=== PATIENT | female | born 1980 | race Hispanic/Latino ===

== ENCOUNTER 2017-01-29 21:04 | Emergency (ER) | payer SELFPAY | END 2017-01-29 22:36 | disposition home or self-care (01) | LOC: ERS 21:04 | DX: J06.9 Acute upper respiratory infection, unspecified (principal); I10 Essential (primary) hypertension; J45.909 Unspecified asthma, uncomplicated | CPT/HCPCS: 93005 ==

== ENCOUNTER 2017-02-19 23:02 | Emergency (ER) | payer SELFPAY ==
[2017-02-20 00:07] LABS: Hematocrit 38.1 % (36.0-47.0); Mean Platelet Volume 8.2 fL (7.4-10.4); Red Blood Cell (RBC) Count 4.46 mill/uL (4.20-5.40); White Blood Cell (WBC) Count 5.2 thou/uL (4.8-10.8)
[2017-02-20 00:27] LABS: Neutrophil 38 % (42-75); Reactive Lymphocytes 7 % (0-10)
[2017-02-20 00:28] LABS: ALT (SGPT) 12 U/L (8-55); AST (SGOT) 11 U/L (5-34); Alkaline Phosphatase 89 U/L (40-150); Anion Gap 13 mmol/L (10-20); BUN (Urea Nitrogen) 15 mg/dL (7.0-18.7); Bilirubin, Total 0.6 mg/dL (0.2-1.2); Calc. Creatinine Clearance 0 mL/min (70-130); Calcium 9.4 mg/dL (7.8-10.44); Carbon Dioxide 24 mmol/L (22-29); Chloride 106 mmol/L (98-107); Estimated GFR-MDRD 87; Globulin 3.3 g/dL (2.4-3.5); Protein, Total 7.5 g/dL (6.0-8.3)
[2017-02-20 00:34] LABS: Troponin I Less than 0.010 ng/mL (< 0.028)
[2017-02-20] MEDS ORDERED: Nitroglycerin 0.4 MG TAB (25 Tab Bottle) ONE (00:36)
[2017-02-20] MEDS ORDERED: Nitroglycerin 2% Ointment 1 INCH/1 GM Packet ONE (00:36)
[2017-02-20 00:51] LABS: CK (CPK) 84 U/L (29-168); Lipase 20 U/L (8-78)
--- NOTE | 2017-02-20 07:35 | RAD ---
PORTABLE CHEST 1 VIEW: DATE: 02/20/17. TIME: 12:00 a.m. HISTORY: Chest pain and facial numbness. FINDINGS: Comparison is made with the exam of 12/20/16. The heart size is normal. The lungs are expanded without focal areas of consolidation, pneumothorax , or pleural effusions. IMPRESSION: No radiographic evidence of acute cardiopulmonary process. POS: H
== END 2017-02-20 01:40 | disposition home or self-care (01) ==
LOC: ERS 23:02
DX: R07.9 Chest pain, unspecified (principal); R20.2 Paresthesia of skin; I10 Essential (primary) hypertension; J45.909 Unspecified asthma, uncomplicated
CPT/HCPCS: 71010; 80053; 81025; 82550; 82553; 83690; 84443; 84484; 85025; 93005

== ENCOUNTER 2017-05-17 13:53 | Emergency (ER) | payer SELFPAY ==
[2017-05-17] MEDS ORDERED: diphenhydrAMINE 50 MG/ML VIAL ONE (14:30)
[2017-05-17] MEDS ORDERED: Metoclopramide HCl 10 MG/2 ML VIAL ONE (14:31)
[2017-05-17] MEDS ORDERED: Ketorolac Tromethamine 30 MG/ML VIAL ONE (14:31)
[2017-05-17 15:00] LABS: Bilirubin Negative (Negative); Blood, Urine Negative (Negative); Clarity CLEAR (Clear); Glucose, Urine (Dipstick) Negative (Negative); Leukocyte Negative (Negative); Nitrite Negative (Negative); Protein, Urine (Dipstick) Negative (Neg-Trace); Specific Gravity, Urine 1.009 (1.002-1.036); Urobilinogen 0.2 mg/dL (0.2-1.0); pH, Urine 7.5 (5.0-9.0)
[2017-05-17 15:02] LABS: Pregnancy Test - Urine (BHCG) Negative (Negative); Pregu Control Background? CLEAR/WHITE (CLR/WHITE); Pregu Control Bar Appear? YES (CONTROL BAR); Specific Gravity 1.009 (1.002-1.036)
--- NOTE | 2017-05-17 15:04 | CT ---
HEAD CT WITHOUT CONTRAST: DATE: 05/17/17. COMPARISON: 12/20/16. HISTORY: Left-sided headache, blurred vision, sensitive to light and sound. TECHNIQUE: Serial axial CT imaging at 5 mm intervals from the vertex through the skull base without contrast. FINDINGS: The imaged paranasal sinuses/mastoid air cells are well aerated. There is no displaced calvarial fra cture. There is no intracranial hemorrhage, midline shift, mass effect, or ventricular enlargement. IMPRESSION: No acute findings. POS: [id number]
== END 2017-05-17 16:16 | disposition home or self-care (01) ==
LOC: ERS 13:53
DX: G43.909 Migraine, unspecified, not intractable, without status migrainosus (principal); I10 Essential (primary) hypertension; J45.909 Unspecified asthma, uncomplicated
CPT/HCPCS: 70450; 81003; 81025; 96361; 96374; 96375; J1200; J1885; J2765

== ENCOUNTER 2024-12-04 12:41 | Outpatient (CLI) | payer OTHER ==
[2024-12-04 14:56] LABS: #Basophils 0.05 10x3/uL (0.0-0.2); #Eosinophils 0.13 10x3/uL (0.0-0.7); #Monocytes 0.30 10x3/uL (0.11-0.59); #Neutrophils 2.45 10x3/uL (1.40-6.50); %Basophils 1.0 % (0.0-1.0); %Eosinophils 2.6 % (0.0-10.0); %Lymphocytes 41.4 % (21.0-51.0); %Monocytes 5.9 % (0.0-10.0); %Neutrophils 48.3 % (42.0-75.0); Hematocrit 37.0 % (36.0-47.0); Hemoglobin 11.9 g/dL (12.0-16.0); Mean Corpuscular Hemoglobin 27.5 pg (27.0-31.0); Mean Corpuscular Volume 85.5 fL (78.0-98.0); Platelet Count 257 10x3/uL (130-400); Red Blood Cell (RBC) Count 4.33 mill/uL (4.20-5.40); White Blood Cell (WBC) Count 5.07 10x3/uL (4.8-10.8)
[2024-12-04 15:11] LABS: INR-International Normal Ratio 1.1; PTT 31.7 sec (22.9-36.1); Prothrombin Time 13.9 sec (12.0-14.7)
[2024-12-04 15:12] LABS: Anion Gap 12 mmol/L (10-20); BHCG - Serum Negative (NEGATIVE); BUN (Urea Nitrogen) 12 mg/dL (7.0-18.7); Calc. Creatinine Clearance 0 mL/min (70-130); Calcium 9.1 mg/dL (7.8-10.44); Carbon Dioxide 22 mmol/L (22-29); Chloride 108 mmol/L (98-107); Glucose 81 mg/dL (70-105); Potassium 4.1 mmol/L (3.5-5.1); Pregs Control Background? CLEAR/WHITE (CLR/WHITE); Pregs Control Bar Appear? YES (CONTROL BAR); Sodium 138 mmol/L (136-145)
[2024-12-04 15:21] LABS: Glucose, Urine (Dipstick) Normal (Negative); Leukocyte 75 Leu/uL (Negative); Protein, Urine (Dipstick) Negative (Neg-Trace); RBC/HPF 0-3 HPF (0-3); Specific Gravity, Urine 1.014 (1.002-1.036)
[2024-12-04 15:23] LABS: Bacteria/HPF 1+ HPF (None Seen)
== END 2024-12-04 12:42 | disposition home or self-care (01) ==
LOC: LABBT 12:41
PROVIDERS: ATTEND Urology
DX: Z01.818 Encounter for other preprocedural examination (principal); N39.0 Urinary tract infection, site not specified; N28.89 Other specified disorders of kidney and ureter
CPT/HCPCS: 71046; 80048; 81001; 84703; 85025; 85610; 85730; 86850; 86900; 86901; 87077; 87086

== ENCOUNTER 2024-12-07 07:29 | Emergency (ER) | payer OTHER ==
[2024-12-07] MEDS ORDERED: Ketorolac Tromethamine 30 MG (1 mL) VIAL ONE (08:29)
[2024-12-07] MEDS ORDERED: Metoclopramide HCl 10 MG (2 mL) VIAL ONE (08:29)
[2024-12-07 08:42] LABS: #Basophils 0.05 10x3/uL (0.0-0.2); #Eosinophils 0.09 10x3/uL (0.0-0.7); #Monocytes 0.22 10x3/uL (0.11-0.59); #Neutrophils 2.41 10x3/uL (1.40-6.50); %Basophils 1.1 % (0.0-1.0); %Eosinophils 1.9 % (0.0-10.0); %Lymphocytes 38.7 % (21.0-51.0); %Monocytes 4.8 % (0.0-10.0); %Neutrophils 52.2 % (42.0-75.0); Hematocrit 40.9 % (36.0-47.0); Hemoglobin 13.6 g/dL (12.0-16.0); Mean Corpuscular Hemoglobin 27.8 pg (27.0-31.0); Mean Corpuscular Volume 83.5 fL (78.0-98.0); Platelet Count 272 10x3/uL (130-400); Red Blood Cell (RBC) Count 4.90 mill/uL (4.20-5.40); White Blood Cell (WBC) Count 4.62 10x3/uL (4.8-10.8)
[2024-12-07 09:08] LABS: ALT (SGPT) 11 U/L (Less than 34); AST (SGOT) 20 U/L (11-34); Albumin 4.5 g/dL (3.1-4.5); Alkaline Phosphatase 84 U/L (40-110); Anion Gap 15 mmol/L (10-20); BUN (Urea Nitrogen) 9 mg/dL (7.0-18.7); Bilirubin, Total 1.0 mg/dL (0.3-1.2); Calc. Creatinine Clearance 0 mL/min (70-130); Calcium 9.4 mg/dL (7.8-10.44); Carbon Dioxide 24 mmol/L (22-29); Chloride 104 mmol/L (98-107); Globulin 3.3 g/dL (2.4-3.5); Glucose 97 mg/dL (70-105); Potassium 4.2 mmol/L (3.5-5.1); Sodium 139 mmol/L (136-145)
[2024-12-07 09:11] LABS: Troponin I Less than 0.010 ng/mL (< 0.028)
[2024-12-07 10:28] LABS: Actual Bicarbonate (HCO3v) 23.0 mEq/L (22-28); Base Excess -2.7 mEq/L (-2.0 to +3.0); Calcium, Ionized (venous) 1.15 mmol/L (1.16-1.32); Chloride (VBG) 106 mmol/L (98-106); Hematocrit-VBG 39 % (36.0-47.0); Hemoglobin (Hb) 13.2 g/dL (11.7-15.5); Potassium (VBG) 4.44 mmol/L (3.70-5.30); Sodium 140 mmol/L (133-146)
== END 2024-12-07 11:36 | disposition home or self-care (01) ==
LOC: ERS 07:29
DX: Z77.098 Contact with and (suspected) exposure to other hazardous, chiefly nonmedicinal, chemicals (principal); I10 Essential (primary) hypertension
CPT/HCPCS: 71045; 80053; 82374; 82805; 84484; 85025; 93005; 96374; 96375; J1885; J2765

== ENCOUNTER → 2024-12-17 | Day surgery (SDC) | payer OTHER ==
[2024-12-04 12:57] VITALS: BMI 34.7
[~2024-12-17] MED LIST: CEFAZOLIN 1 GM VIAL ONE; Lidocaine 1% PF 5 ML VIAL ONE; PROPOFOL 0 ML ONE; Rocuronium Bromide 10 MG/ML (10ML VIAL) ONE; fentaNYL PF 100 MCG/2 ML SYRINGE ONE
== END ==
LOC: SDC 06:10
PROVIDERS: ATTEND Urology
DX: N28.89 Other specified disorders of kidney and ureter (principal); Z53.8 Procedure and treatment not carried out for other reasons
CPT/HCPCS: 86850; 86900; 86901; J0690; J2704

== ENCOUNTER 2025-02-11 12:00 | Inpatient (IN) | payer OTHER ==
[2025-02-25] MEDS ORDERED: Rocuronium Bromide 10 MG/ML (10ML VIAL) ONE (06:44)
[2025-02-25] MEDS ORDERED: PHENYLEPHRINE-NS 100 MCG/ML 10 ML SYRINGE ONE (06:44)
[2025-02-25] MEDS ORDERED: HYDROmorphone 2 MG/ML VIAL ONE (06:45)
[2025-02-25] MEDS ORDERED: PROPOFOL 20 ML ONE (06:46)
[2025-02-25] MEDS ORDERED: CEFAZOLIN 2 GM VIAL ONE (07:40)
[2025-02-25] MEDS ORDERED: Glycopyrrolate 0.2 MG/ML 5 ML SYRINGE ONE (09:04)
[2025-02-25] MEDS ORDERED: Bupivacaine 0.25% HCL 30 ML VIAL ONE (09:10)
[2025-02-25] MEDS ORDERED: Ropivacaine 0.2% HCl/PF 40 ML ONE (11:47)
[2025-02-25] MEDS ORDERED: SUGAMMADEX SODIUM 200 MG/2 ML VIAL ONE (11:59)
[2025-02-25] MEDS ORDERED: Ondansetron PF 4 MG/2 ML Vial ONE (11:59)
[2025-02-25] MEDS ORDERED: CEFAZOLIN 1 GM VIAL ONE (12:41)
[2025-02-25] MEDS ORDERED: fentaNYL PF 100 MCG/2 ML SYRINGE ONE ×2 (13:25→13:53)
[2025-02-25] MEDS ORDERED: Ondansetron PF 4 MG/2 ML Vial IVP PRN (13:57)
[2025-02-25] MEDS ORDERED: Mag-Al 1200 mg/1200 mg/30 ML UDCUP PO PRN (13:57)
[2025-02-25] MEDS ORDERED: diphenhydrAMINE 25 MG CAP PO PRN (13:57)
[2025-02-25] MEDS ORDERED: hydrALAZINE 20 MG/ML VIAL SLOW IVP PRN (13:57)
[2025-02-25] MEDS ORDERED: Oxybutynin 5 MG TAB PO PRN (13:57)
[2025-02-25] MEDS ORDERED: Bisacodyl 10 MG SUPP PR PRN (13:57)
[2025-02-25 16:58] LABS: Hematocrit 35.9 % (36.0-47.0); Hemoglobin 11.2 g/dL (12.0-16.0); Mean Corpuscular Hemoglobin 26.8 pg (27.0-31.0); Mean Corpuscular Volume 85.9 fL (78.0-98.0); Platelet Count 240 10x3/uL (130-400); Red Blood Cell (RBC) Count 4.18 mill/uL (4.20-5.40); White Blood Cell (WBC) Count 13.75 10x3/uL (4.8-10.8)
[2025-02-25] MEDS: Acetaminophen 500 MG TAB PO SCH (17:11)
[2025-02-25 17:15] LABS: Anion Gap 14 mmol/L (10-20); BUN (Urea Nitrogen) 9 mg/dL (7.0-18.7); Calc. Creatinine Clearance 114 mL/min (70-130); Calcium 8.5 mg/dL (7.8-10.44); Carbon Dioxide 20 mmol/L (22-29); Chloride 111 mmol/L (98-107); Glucose 142 mg/dL (70-105); Potassium 4.1 mmol/L (3.5-5.1); Sodium 141 mmol/L (136-145)
[2025-02-26 06:10] LABS: #Basophils Less than 0.03 10x3/uL (0.0-0.2); #Eosinophils Less than 0.03 10x3/uL (0.0-0.7); #Monocytes 0.54 10x3/uL (0.11-0.59); #Neutrophils 7.75 10x3/uL (1.40-6.50); %Basophils 0.2 % (0.0-1.0); %Eosinophils 0.0 % (0.0-10.0); %Lymphocytes 12.7 % (21.0-51.0); %Monocytes 5.6 % (0.0-10.0); %Neutrophils 80.9 % (42.0-75.0); Hematocrit 28.4 % (36.0-47.0); Hemoglobin 9.0 g/dL (12.0-16.0); Mean Corpuscular Hemoglobin 27.0 pg (27.0-31.0); Mean Corpuscular Volume 85.3 fL (78.0-98.0); Platelet Count 246 10x3/uL (130-400); Red Blood Cell (RBC) Count 3.33 mill/uL (4.20-5.40); White Blood Cell (WBC) Count 9.59 10x3/uL (4.8-10.8)
[2025-02-26 06:37] LABS: Anion Gap 10 mmol/L (10-20); BUN (Urea Nitrogen) 12 mg/dL (7.0-18.7); Calc. Creatinine Clearance 108 mL/min (70-130); Calcium 8.3 mg/dL (7.8-10.44); Carbon Dioxide 23 mmol/L (22-29); Chloride 109 mmol/L (98-107); Glucose 114 mg/dL (70-105); Potassium 4.1 mmol/L (3.5-5.1); Sodium 138 mmol/L (136-145)
[2025-02-26] MEDS: oxyCODONE 5 MG TAB PO PRN ×2 (09:05→15:37)
[2025-02-27 05:20] LABS: #Basophils 0.04 10x3/uL (0.0-0.2); #Eosinophils 0.04 10x3/uL (0.0-0.7); #Monocytes 0.46 10x3/uL (0.11-0.59); #Neutrophils 3.99 10x3/uL (1.40-6.50); %Basophils 0.6 % (0.0-1.0); %Eosinophils 0.6 % (0.0-10.0); %Lymphocytes 35.0 % (21.0-51.0); %Monocytes 6.5 % (0.0-10.0); %Neutrophils 56.7 % (42.0-75.0); Hematocrit 27.2 % (36.0-47.0); Hemoglobin 8.4 g/dL (12.0-16.0); Mean Corpuscular Hemoglobin 26.7 pg (27.0-31.0); Mean Corpuscular Volume 86.3 fL (78.0-98.0); Platelet Count 193 10x3/uL (130-400); Red Blood Cell (RBC) Count 3.15 mill/uL (4.20-5.40); White Blood Cell (WBC) Count 7.03 10x3/uL (4.8-10.8)
[2025-02-27 05:40] LABS: Anion Gap 9 mmol/L (10-20); BUN (Urea Nitrogen) 13 mg/dL (7.0-18.7); Calc. Creatinine Clearance 110 mL/min (70-130); Calcium 8.2 mg/dL (7.8-10.44); Carbon Dioxide 24 mmol/L (22-29); Chloride 108 mmol/L (98-107); Glucose 96 mg/dL (70-105); Magnesium 2.0 mg/dL (1.6-2.6); Potassium 4.0 mmol/L (3.5-5.1); Sodium 137 mmol/L (136-145)
[2025-02-27 12:49] LABS: Hematocrit 29.9 % (36.0-47.0); Hemoglobin 9.2 g/dL (12.0-16.0)
[2025-02-27 14:45] VITALS: BMI 36.3
[2025-02-28 05:43] LABS: #Basophils 0.06 10x3/uL (0.0-0.2); #Eosinophils 0.11 10x3/uL (0.0-0.7); #Monocytes 0.40 10x3/uL (0.11-0.59); #Neutrophils 2.93 10x3/uL (1.40-6.50); %Basophils 1.1 % (0.0-1.0); %Eosinophils 2.0 % (0.0-10.0); %Lymphocytes 35.3 % (21.0-51.0); %Monocytes 7.3 % (0.0-10.0); %Neutrophils 53.6 % (42.0-75.0); Hematocrit 28.4 % (36.0-47.0); Hemoglobin 8.9 g/dL (12.0-16.0); Mean Corpuscular Hemoglobin 26.7 pg (27.0-31.0); Mean Corpuscular Volume 85.3 fL (78.0-98.0); Platelet Count 188 10x3/uL (130-400); Red Blood Cell (RBC) Count 3.33 mill/uL (4.20-5.40); White Blood Cell (WBC) Count 5.47 10x3/uL (4.8-10.8)
[2025-02-28 06:09] LABS: Anion Gap 9 mmol/L (10-20); BUN (Urea Nitrogen) 11 mg/dL (7.0-18.7); Calc. Creatinine Clearance 126 mL/min (70-130); Calcium 8.7 mg/dL (7.8-10.44); Carbon Dioxide 29 mmol/L (22-29); Chloride 105 mmol/L (98-107); Glucose 85 mg/dL (70-105); Magnesium 1.8 mg/dL (1.6-2.6); Potassium 3.9 mmol/L (3.5-5.1); Sodium 139 mmol/L (136-145)
[2025-02-28] MEDS: FLU (Fluarix Triv) 25-26 (6MOS UP)/PF 45 MCG/0.5 ML Syringe IM ONE (11:00)
[2025-02-28] MEDS: Magnesium 2 GM/50 ML(in water) 2 GM in Premix 1 BAG IVPB SCH (11:09)
[2025-03-01 05:54] LABS: #Basophils 0.04 10x3/uL (0.0-0.2); #Eosinophils 0.14 10x3/uL (0.0-0.7); #Monocytes 0.38 10x3/uL (0.11-0.59); #Neutrophils 2.51 10x3/uL (1.40-6.50); %Basophils 0.8 % (0.0-1.0); %Eosinophils 2.8 % (0.0-10.0); %Lymphocytes 38.1 % (21.0-51.0); %Monocytes 7.5 % (0.0-10.0); %Neutrophils 49.8 % (42.0-75.0); Hematocrit 31.4 % (36.0-47.0); Hemoglobin 10.2 g/dL (12.0-16.0); Mean Corpuscular Hemoglobin 26.8 pg (27.0-31.0); Mean Corpuscular Volume 82.6 fL (78.0-98.0); Platelet Count 229 10x3/uL (130-400); Red Blood Cell (RBC) Count 3.80 mill/uL (4.20-5.40); White Blood Cell (WBC) Count 5.04 10x3/uL (4.8-10.8)
[2025-03-01 06:13] LABS: Anion Gap 11 mmol/L (10-20); BUN (Urea Nitrogen) 15 mg/dL (7.0-18.7); Calc. Creatinine Clearance 121 mL/min (70-130); Calcium 9.0 mg/dL (7.8-10.44); Carbon Dioxide 28 mmol/L (22-29); Chloride 102 mmol/L (98-107); Glucose 92 mg/dL (70-105); Magnesium 1.9 mg/dL (1.6-2.6); Potassium 3.8 mmol/L (3.5-5.1); Sodium 137 mmol/L (136-145)
[2025-03-01 11:55] VITALS: BP 146/65; TEMP 97.8
== END 2025-03-01 14:20 | disposition home or self-care (01) | DRG 657 ==
LOC: INTOOBSV 02-25 05:50 → SURG A 02-25 05:50 → SURG B 02-25 15:15 → 2NO 02-26 22:54 → OBSVTOIN 02-27 11:04
PROVIDERS: ADMIT Urology; ATTEND Internal Medicine
PROC: 8E0W4CZ Robotic Assisted Procedure of Trunk Region, Percutaneous Endoscopic Approach (ICD-10-PCS; principal; 2025-02-25)
PROC: 0TB04ZZ Excision of Right Kidney, Percutaneous Endoscopic Approach (ICD-10-PCS; principal; 2025-02-25)
DX: C64.1 Malignant neoplasm of right kidney, except renal pelvis (principal); N39.0 Urinary tract infection, site not specified; I10 Essential (primary) hypertension; E78.5 Hyperlipidemia, unspecified; D63.0 Anemia in neoplastic disease; I95.1 Orthostatic hypotension; R00.1 Bradycardia, unspecified; Z79.899 Other long term (current) drug therapy
CPT/HCPCS: 36415; 71045; 80048; 83735; 84443; 85025; 85027; 86850; 86900; 86901; 88307; 90656; 93005; 93010; C1713; C1751; C1889; C9250-JZ; J0169; J0665; J0690; J1100; J1171; J2250; J2405; J2704; J2795; J3010; J7030; S2900

== ENCOUNTER 2025-03-15 08:26 | Outpatient (CLI) | payer OTHER ==
[2025-03-15] MEDS ORDERED: Iopamidol 370 76% 100 ML VIAL ONE (11:02)
== END 2025-03-15 08:27 | disposition home or self-care (01) ==
LOC: CT 08:26
PROVIDERS: ATTEND Urology
DX: C64.1 Malignant neoplasm of right kidney, except renal pelvis (principal); R93.89 Abnormal findings on diagnostic imaging of other specified body structures; Z90.5 Acquired absence of kidney
CPT/HCPCS: 74177